=== PATIENT | female | born 1950 | race Caucasian/White ===

== ENCOUNTER → 2017-10-25 | Outpatient (CLI) | payer OTHER, MEDICARE ==
[~2017-10-25] VITALS: Ht 154.9 cm; Wt 81.0 kg
[~2017-10-25] MED LIST: Aspirin E.C. PO; COREG25 M1 PO; CRESTOR20 MG PO; Ceftin PO; Coreg PO; Cymbalta PO; DOLOPHINE HCL5 MG PO; FLEXERIL10 MG PO; Lasix PO; Methadone HCl PO; Micro-K,K-Tab,K-Dur, PO; OXYCODONE-APAP1 EACH PO; OXYCONTIN20 MG PO; Percocet 5/325,Endoc PO; VITAMIN B-1250 MC3 PO; VITAMIN D310000 UNI1 PO; Xarelto PO; ZITHROMAX Z-PA250 MG PO; Zestril,Prinivil PO
[2017-10-25 11:26] VITALS: BP 136/85
== END | disposition home or self-care (01) ==
LOC: IVINF 10-23 15:00
DX: M85.80 Other specified disorders of bone density and structure, unspecified site (principal); M81.0 Age-related osteoporosis without current pathological fracture
CPT/HCPCS: 96374; J3489